=== PATIENT | male | born 1950 | race Caucasian/White ===

== ENCOUNTER 2022-09-27 08:57 | Outpatient (REF) | payer MEDICARE, OTHER, SELFPAY ==
--- NOTE | ~2022-09-27 | CT_ITS ---
EXAMINATION: CT HEAD WITHOUT CONTRAST CLINICAL INFORMATION: Parkinson's disease. COMPARISON: Head CT from 07/13/2020. TECHNIQUE: Contiguous axial imaging was performed from the skullbase to vertex without intravenous administration of contrast. This CT examination was performed using dose optimization techniques as appropriate, variously including the following: *Automated exposure control *Adjustment of mA and/or kV according to patient size (this includes techniques or standardized protocols for targeted exams where dose is matched to indication/reason for exam; i.e. extremities or head) *Use of iterative reconstruction technique DLP: 817 mGy-cm. FINDINGS: There is no evidence of acute intracranial hemorrhage or territorial infarction. No abnormal mass effect or midline shift is seen. No extra-axial fluid collections are identified. There are drvn-me-tvpzhrco small vessel ischemic changes in the cerebral white matter and brainstem. Pkos-zg-looigpfe generalized parenchymal volume loss again noted with concordant ex vacuo prominence of the ventricles. The osseous structures and soft tissues are normal. The mastoid air cells are well aerated. Very mild mucosal thickening noted in the left maxillary antrum. CT/CT head/brain wo IV con IMPRESSION: No acute intracranial hemorrhage or territorial infarction. Slwx-sl-tmaonkwa chronic white matter microangiopathy and generalized parenchymal volume loss.
== END 2022-09-27 08:58 | disposition home or self-care (01) ==
LOC: HO.CT 08:57
PROVIDERS: PCP Internal Medicine; Visit Provider Psychiatry & Neurology Neurology
DX: G20 Parkinson's disease (principal); G91.2 (Idiopathic) normal pressure hydrocephalus
CPT/HCPCS: 70450